=== PATIENT | male | born 1950 | race Caucasian/White ===

== ENCOUNTER → 2017-01-02 | Outpatient (CLI) | payer BC ==
--- NOTE | 2017-01-02 17:09 | PCVCIMAG ---
APPROVED REPORT Exam: Stress Echocardiogram Indication: Calcium score 100-200, Parox A Fib, mitral prolapse, HTN Patient Location: Echo lab Stress Nurse: Shayna Medley RN Status: routine Ht: 6 ft 1 in HR: 70 bpm BP: 130/86 mmHg Rhythm: NSR Procedure The patient underwent an Exercise Stress Test using the Jake Protocol. Blood pressure, heart rate, and EKG were monitored. An Echocardiogram was performed by bioprocessing manufacturing technician in four stages in quad fashion. At peak stress, four selected images were obtained and placed side by side with resting images for comparison. Stress Test Details Stress Test: Exercise stress testing was performed using a Jake protocol. HR Resting HR: 70 bpmMax Heart Rate (APMHR): 155 bpm Max HR Achieved: 142 bpmTarget HR (85% APMHR): 131 bpm % of APMHR: 91 Recovery HR: 94 bpm HR response to stress: Normal HR response to stress BP Resting BP: 130/86 mmHg Max BP: 188/78 mmHg Recovery BP: 132/78 mmHg ECG Resting ECG: Sinus Rhythm Stress ECG: Sinus Rhythm ST Change: Normal Arrhythmia: Isolated PVCs Recovery ECG: Sinus Rhythm Recovery ST Change: Normal Recovery Arrhythmia: Frequent Isolated PVCs that resolved to NSR Clinical Reason for Termination: Maximal effort Exercise duration: 9 min 45 sec Highest Stage Achieved: Stage 4: 4.2 mph at 16% grade. Exercise capacity: 12.4 METs Overall Exercise Capacity for Age: Normal Pre-Stress Echo The resting Echocardiogram showed normal left ventricular contractility with an estimated Ejection Fraction of about 55%. Normal wall motion in all segments on baseline images. Post-Stress Echo The stress Echocardiogram showed normal left ventricular contractility with an estimated Ejection Fraction of about 65%. Normal augmentation of wall motion in all segments on post stress images. Clinical No clinical or ECG evidence for ischemia. Conclusion Clinical Response: Non-ischemic Exercise Capacity: Average Stress ECG Response: Non-ischemic Stress Echo Images: Non-ischemic The left ventricle is normal in size and wall thickness in both the rest and stress images. Other Information Study Quality: Adequate <Conclusion> The left ventricle is normal in size and wall thickness in both the rest and stress images.
== END | disposition home or self-care (01) ==
LOC: PCVCIMAG 14:22
PROVIDERS: ATTEND Internal Medicine Cardiovascular Disease
DX: I34.1 Nonrheumatic mitral (valve) prolapse (principal); I49.3 Ventricular premature depolarization; I48.0 Paroxysmal atrial fibrillation; I10 Essential (primary) hypertension; E78.00 Pure hypercholesterolemia, unspecified
CPT/HCPCS: 80061; 93325; 93351

== ENCOUNTER → 2018-05-12 | Outpatient (CLI) | payer OTHER, MEDICARE ==
[~2018-05-12] MED LIST: ASPI-630 PO; CETI-161 PO; CHOL200059 PO; MELO15TA23 PO; OXYC5CAP PO
[2018-05-12 14:56] LABS: BASO % 0 % (0-3); EOS # 0.1 x10^3/uL (0.0-0.7); EOS % 1 % (0-3); HEMATOCRIT 43.9 % (39.0-53.0); HEMOGLOBIN 14.4 g/dL (13.0-17.5); LYMPH # 2.2 x10^3/uL (1.0-4.8); LYMPH % 32 % (24-48); MEAN CORPUSCULAR HEMOGLOBIN 32 pg (25-35); MEAN CORPUSCULAR HGB CONC 33 g/dL (31-37); MEAN CORPUSCULAR VOLUME 97 fL (79-100); MONO # 0.8 x10^3/uL (0.0-1.1); MONO % 11 % (0-9); NEUT # 3.9 x10^3uL (1.8-7.7); NEUT % 56 % (31-73); PLATELET COUNT 284 x10^3/uL (140-400); RED BLOOD COUNT 4.54 x10^6/uL (4.30-5.70); RED CELL DISTRIBUTION WIDTH 13.7 % (11.5-14.5)
--- NOTE | 2018-05-12 15:04 | NUR ---
CALLED DR HERNANDEZ'S OFFICE FOR RECENT EKG.
[2018-05-12 15:14] LABS: ALBUMIN 3.7 g/dL (3.4-5.0); ALBUMIN/GLOBULIN RATIO 1.1 (1.0-1.7); CALCIUM 9.2 mg/dL (8.5-10.1); CREATININE 0.9 mg/dL (0.7-1.3); GFR 84.2; TOTAL BILIRUBIN 0.4 mg/dL (0.2-1.0); TOTAL PROTEIN 7.2 g/dL (6.4-8.2)
== END | disposition home or self-care (01) ==
LOC: SURGPAT 13:25
PROVIDERS: ATTEND Neurological Surgery
DX: Z01.818 Encounter for other preprocedural examination (principal); M54.12 Radiculopathy, cervical region; M47.892 Other spondylosis, cervical region
CPT/HCPCS: 36415; 80053; 85025; 87641

== ENCOUNTER 2018-05-21 10:06 | Observation (INO) | payer OTHER, MEDICARE ==
--- NOTE | 2018-05-20 20:42 | PREOP HP ---
DATE OF SERVICE: 05/21/2018 HISTORY OF PRESENT ILLNESS: The patient is a pleasant 68-year-old who is having difficulty with left neck pain and pain that radiates into the left shoulder and left chest. The pain then radiates into his left arm. The problem has been present for years, but became too much more significant about 3 months ago. He said he was helping his son work on a house and developed the severe pain. He says the pain is 15/10, constantly. Coughing and sneezing and blowing his nose markedly increases pain. Nothing seems to help him. He has been taking Winona and Mobic without benefit. He has had multiple epidural steroid injections in the past, which he says usually help him for several months. He has had 1 about 3 weeks ago without any benefit. In 2010, he underwent a posterior cervical surgery and did well from that. PAST MEDICAL HISTORY: Tonsillitis. PAST SURGICAL HISTORY: Left shoulder surgery in 1992, right shoulder surgery in 1995, left foot in 2000, posterior cervical decompression in 04/2009, lumbar microdecompression at L3-L4 in 2010. FAMILY HISTORY: Alzheimer's. SOCIAL HISTORY: Retired. Exercises daily. No history of substance abuse. Nonsmoker. Drinks alcohol 1-2 times per month. Drinks minimal amount of caffeinated beverages daily. ALLERGIES: LATEX, PENICILLIN, SULFA. CURRENT MEDICATIONS: Winona, Mobic, aspirin, Tylenol. REVIEW OF SYSTEMS: A 12-point review of systems was obtained and is noncontributory except for that mentioned above. PHYSICAL EXAMINATION: NEUROSURGERY EXAMINATION: GENERAL APPEARANCE: Alert, pleasant, in no acute distress. HEAD: Normocephalic, atraumatic. NECK AND THYROID: Mild to moderate tenderness with palpation of posterior cervical region, well healed incision. SKIN: Warm and dry. MUSCULOSKELETAL: Cervical paraspinal muscle bulk is normal, cervical range of motion is restricted, normal range of motion of the upper extremities bilaterally. EXTREMITIES: No clubbing, cyanosis or edema. NEUROLOGIC: Alert, oriented x 3, normal recent and remote memory, strength 5/5 in bilateral upper and lower extremities, sensory was intact to light touch in the upper and lower extremities. Reflexes are present and symmetric in the upper and lower extremities bilaterally, normal gait. IMAGING: Reviewed. I reviewed a cervical MRI scan from 04/2018. On that study, there was significant foraminal narrowing present at C4-C5 and C5-C6. ASSESSMENT/ PLAN: The patient is somewhat complex. He has undergone posterior cervical surgery in the past. His current problem is left-sided neck pain, which radiates into his left chest and left shoulder as well as into his left proximal arm. I believe that the primary problems are at C4-C5 and C5-C6 on the left. He does have other disease, however. I explained to him that I am going to perform an anterior operation at C4-C5 and C5-C6 and decompress to see how he would do. I did discuss with him the surgery and the risks involved. I outlined the soft tissue structures of the neck and sequelae of injury to each. I spoke about the technique of the operation, the rationale for surgery. I discussed the expected postoperative course. He understands. He would like to go ahead. We will make the arrangements. ADRIANA ESPOSITO MD DR: LILIANA/ming JOB#: [id number] / [id number] ERASMO
[2018-05-21] VITALS (10 sets, daily range): BP systolic 144–165; BP diastolic 81–102
[~2018-05-21] VITALS: Ht 188 cm; Wt 106.6 kg
[~2018-05-21 10:06] MED LIST changes: +BACITRACIN 50,000 UNIT in IV NORMAL SALINE 1000ML BAG 1,000 ML IRR ONE; +BUPIVAC MPF-EPI 0.5%-1:200000 30 ML VIAL. ONE; +GELATIN SPONGE SIZE 100. ONE; +HYDROmorphone 2 MG/ML VIAL IV PRN; +IV RINGERS,LACTATED 1000ML 1,000 ML IV SCH; +LIDOCAINE 1% PF 2 ML VIAL. ID PRN; +MORPHINE SULFATE 4 MG/ML VIAL. IV PRN; +ONDANSETRON PF 4 MG/2 ML VIAL. IV PRN; +PROCHLORPERAZINE 10 MG/2 ML VIAL. IV PRN; +THROMBIN TOPICAL 20,000 UNIT SPRAY.SYRN KIT TP ONE; +VANCOMYCIN 1GM IVPB FOR OMNI 250 ML IV PRN; +fentaNYL PF VIAL 100 MCG/2 ML VIAL IV PRN
[2018-05-21] MEDS ORDERED: ROCURONIUM 50 MG/5 ML VIAL. ONE (11:23)
[2018-05-21] MEDS ORDERED: REMIFENTANIL 2 MG VIAL. IV ONE (11:24)
[2018-05-21] MEDS ORDERED: MIDAZOLAM HCL/PF 2 MG/2 ML VIAL. ONE (11:24)
[2018-05-21] MEDS ORDERED: fentaNYL PF VIAL 250 MCG/5 ML VIAL ONE (11:24)
[2018-05-21] MEDS ORDERED: DEXAMETHASONE SOD PHOS 20 MG/5 ML VIAL. ONE (14:03)
[2018-05-21] MEDS ORDERED: ONDANSETRON PF 4 MG/2 ML VIAL. ONE (14:03)
[2018-05-21] MEDS ORDERED: LIDOCAINE 2% PF 5 ML VIAL. ONE (14:04)
[2018-05-21] MEDS ORDERED: PROPOFOL 50 ML IV ONE ×2 (14:04→14:14)
[2018-05-21] MEDS ORDERED: PROPOFOL 20 ML IV ONE (14:04)
[2018-05-21] MEDS ORDERED: PHENYLEPHRINE 10 MG/ML VIAL. ONE ×2 (14:04)
[2018-05-21] MEDS ORDERED: DESFLURANE > 120 MINUTES IH ONE (14:05)
[2018-05-21] MEDS ORDERED: 0.9 % SODIUM CHLORIDE 10 ML DISP.SYRIN. IV PRN (14:45)
[2018-05-21] MEDS ORDERED: MAGNESIUM HYDROXIDE 2,400 MG/30 ML ORAL.SUSP. PO PRN (14:45)
[2018-05-21] MEDS ORDERED: ONDANSETRON PF 4 MG/2 ML VIAL. IV PRN (14:45)
[2018-05-21] MEDS ORDERED: CALCIUM CARBONATE 500 MG TAB.CHEW PO PRN (14:45)
[2018-05-21] MEDS ORDERED: NALOXONE 0.4 MG/ML VIAL. IV PRN (14:45)
[2018-05-21] MEDS ORDERED: MAG HYDROX/ALUMINUM HYD/SIMETH 30 ML ORAL.SUSP PO PRN (14:45)
[2018-05-21] MEDS ORDERED: fentaNYL PF VIAL 100 MCG/2 ML VIAL IV PRN ×2 (14:45)
[2018-05-21] MEDS ORDERED: diphenhydrAMINE HCL 25 MG CAPSULE PO PRN (14:45)
[2018-05-21] MEDS ORDERED: HYDROcodone/APAP 7.5/325MG 1 TAB TABLET PO PRN (14:45)
[2018-05-21] MEDS ORDERED: ACETAMINOPHEN 325 MG TABLET. PO PRN (14:45)
--- NOTE | 2018-05-21 15:16 | OP ---
DATE OF SURGERY: 05/21/2018 PREOPERATIVE DIAGNOSES: Lateral recess and foraminal narrowing C4-C5, C5-C6 with severe left cervical radiculopathy. POSTOPERATIVE DIAGNOSIS: Lateral recess and foraminal narrowing C4-C5, C5-C6 with severe left cervical radiculopathy. OPERATION PERFORMED: Anterior cervical microdiscectomy C4-C5, C5-C6; anterior cervical interbody fusion C4-C5, C5-C6 with allograft and autograft bone, anterior cervical plate C4-5-6. The operation was done with EMG monitoring, SSEP monitoring, NIMS monitoring, motor evoked potentials, fluoroscopy and microscopic dissection. SURGEON: Marvin Esposito M.D. EXPANDER: FERNIE Quick assisted with the surgery. She assisted with exposure, the 2-level microdecompression as well as the closure. OPERATIVE INDICATIONS: The patient is a pleasant 68-year-old man who developed severe intractable neck and left arm pain, which failed conservative measures. On imaging studies, he had the above-mentioned findings. After considerable discussion, I recommended an anterior cervical microdiscectomy and fusion. I discussed with him the surgery and the risks involved. I spoke about the soft tissue structures of the neck and sequelae of injury to each including injury to the carotid, the trachea, the esophagus, injury to both the nerve root and to spinal cord and the sequelae of this. I spoke about the expected postoperative course. I spoke about the use of anterior plating and screw constructs. I spoke about long-term issues associated with cervical surgery. He understood very well, as did his and they wished for me to go ahead. DESCRIPTION OF PROCEDURE: Following general endotracheal anesthesia, the patient was positioned supine in a neutral position. The anterior cervical region was then prepped and draped in standard fashion. CRIS hose and A-V Impulse boots were applied for DVT prophylaxis. A microscope was draped. Fluoroscopy was draped and brought into the field. Monitoring was established. Vancomycin 1 gram was given prior to surgery. Using fluoroscopic guidance, incision was made in the midline around toward the skin crease directly over the C5-C6 interspace. I dissected down through skin and subcutaneous tissue. I dissected around the medial aspect of the sternocleidomastoid and carotid artery sheath down the anterior cervical vertebral body. I exposed the C4-C5 and C5-C6. I placed [place] cervical retractors locked in the longus colli muscle at C5-C6 and 14 mm pins in C5 and C6. I did throughout this time confirmed my position fluoroscopically. I brought in the microscope and the remainder of surgery was done with the microscope using microscopic technique. I incised the anterior annulus with #11 blade. I distracted the disc space. I performed a discectomy with pituitary rongeurs. There was considerable degenerative change. I drilled away the posterior spurring and used 1 and 2 mm micro Kerrison's to trim away the annulus and the ligament and expose the neural foramen bilaterally. I worked diligently. I used small amounts of bone wax for hemostasis both from bone bleeding and the bipolar cautery where necessary and created an excellent decompression of 5-6. I placed an interbody fusion cage measuring 7 mm, which was packed with allograft and autograft bone. The autograft bone, I obtained from saving the bone spurs that I shaved away with the high speed air drill. Following this, I then removed the pin from C6 and put bone wax into this space and I moved superiorly and placed my retractor at C4-C5 and put the screw in C4. I again distracted the disc space. I again confirmed my position fluoroscopically. I again incised the anterior annulus. I used a high speed air drill to trim with the spurring and saved that bone. I performed a discectomy with endplate scrapers as well as pituitary and posteriorly then I trimmed the posterior osteophytic spurring and drilled and opened the annulus and the ligament, worked bilaterally to assure myself that the foramen were widely open. I placed trials and selected a 7 mm interbody fusion straight cage, which was packed with allograft and autograft bone. Hemostasis was perfect as at C5-C6 and I tapped the cage into position gently and then placed a 30 mm [employer] Piranha anterior plate and six 14 mm screws. The superior and inferior screws were placed first followed by the remaining screws, which were then locked. I then irrigated copiously with antibiotic solution. I explored carefully and assured myself that hemostasis was perfect. I closed the platysma as a separate layer. I closed the subcutaneous tissue and the skin was closed with 4-0 subcuticular stitch. The surgery went very well and the patient awakened and uneventfully taken to recovery room in excellent condition. I was quite pleased with the surgery. MARVIN ESPOSITO MD DR: LILIANA/ming JOB#: [id number] / [id number] ERASMO
[2018-05-21] MEDS: fentaNYL PF VIAL 100 MCG/2 ML VIAL IV PRN ×2 (15:21→15:35)
[2018-05-21] MEDS ORDERED: POTASSIUM CL 20MEQ D5-0.45NACL 1,000 ML IV SCH (16:00)
--- NOTE | 2018-05-21 16:34 | NUR ---
Patient arrived to the unit around 1604 in a hospital bed from the PACU. His Briseida is at bedside. Soft collar in place with an ice pack over it. 02 going at 2L continuous. Onel and SCDs on bilateral lower extremities. Patient complaining of pain in his neck with PRN medication given. He was able to ambulate with one person assist to the restroom without complications. Dressing dry/intact. Will continue to monitor.
[2018-05-21] MEDS: BENZOCAINE/MENTHOL LOZENGE. PO PRN ×3 (17:04→22:22)
--- NOTE | 2018-05-21 17:23 | NUR ---
denies numbness and tingling especially on the left arm; field crop grower equal and strong. complains of severe sore throat; cold foods given along with Cepacol. feels better at iv pain medication but diastolic blood pressure remains elevated. remains at bedside. scripts(pain medication and muscle relaxant) given to
[2018-05-21] MEDS: HYDROcodone/APAP 7.5/325MG 1 TAB TABLET PO PRN (18:37)
[2018-05-21] MEDS: METHOCARBAMOL 750 MG TABLET PO SCH (21:05)
[2018-05-21] MEDS: DOCUSATE SODIUM 100 MG CAPSULE. PO SCH (21:05)
[2018-05-22] MEDS ORDERED: VANCOMYCIN 1 GM in IV NORMAL SALINE 250ML 250 ML IV ONE (00:01)
[2018-05-22 03:29] VITALS: BP 133/76
[2018-05-22 06:00] VITALS: BP 124/77
--- NOTE | 2018-05-22 06:42 | NUR ---
Patient has rested quietly in chair states "I rest better in chair." Patient declined ice to surgical sites. Patient ambulated laps around nursing station frequently after using restroom throughout night. B/P has decreased as night progressed. Call light in reach.
--- NOTE | 2018-05-22 08:00 | NUR ---
dozes in the recliner with feet elevated. soft collar in place. dressing to right anterior neck is clean and dry. rating his pain a "6"-refused pain medication. muscle relaxant given.
[2018-05-22] MEDS: METHOCARBAMOL 750 MG TABLET PO SCH (08:23)
[2018-05-22] MEDS: DOCUSATE SODIUM 100 MG CAPSULE. PO SCH (08:23)
[2018-05-22] MEDS ORDERED: CETIRIZINE HCL 10 MG TABLET. PO SCH (09:00)
[2018-05-22] MEDS ORDERED: CHOLECALCIFEROL (VITAMIN D3) 1,000 UNIT TABLET PO SCH (09:00)
[2018-05-22] MEDS ORDERED: ASPIRIN CHEWABLE 81 MG TABLET. PO SCH (09:00)
--- NOTE | 2018-05-22 10:25 | DISCH ---
DISCHARGE INSTRUCTIONS Condition on Discharge Condition on Discharge: Stable Activity After Discharge Activity Instructions for Disc: Activity as tolerated, Avoid exertion, Walk in house Other activity instructions: ambulation is the only exercise permitted; gradually increase time and dist Bathing Instructions: Shower-keep dressing dry, No Tub Bath until see Lifting Instructions after Dis: No heavy lifting, No pulling or pushing, Do not lift >10 pounds Exercise Instruction after Dis: Progress as tolerated Driving Instructions after Dis: No driving for 2 weeks Weight Bearing Status after Di: No restrictions, Full weight bearing, As tolerated Diet after Discharge Diet after Discharge: Regular Additional Diet Restrictions: resume home diet Diet Texture: Regular Liquid Texture: Thin Liquid Swallowing Supervision: None needed Wound Incision Care Wound/Incision Care: Ice to area for comfort, Keep wound/cast CDI Other wound/incision instructi: may shower 48 hrs after surgery; NO direct water, antibiotic cream/ointment Wound Care Equipment: Dressings Checks after Discharge DC Comment: increase fruits, vegetables and fiber; attempt BM q 2-3 days Contacting the after DC Call your doctor for: Concerns you may have Follow-Up Follow Up With: call [phone] for a 2 week post op appt with Dr. Esposito' s nurse ADRIANA ESPOSITO MD May 22, 2018 10:25
[2018-05-22] MEDS ORDERED: DOCU-109 PO (10:29)
[2018-05-22] MEDS ORDERED: METH750T2 PO (10:29)
[2018-05-22] MEDS ORDERED: HYDR-2765 PO (10:29)
[2018-05-22] MEDS: HYDROcodone/APAP 7.5/325MG 1 TAB TABLET PO PRN (10:44)
--- NOTE | 2018-05-22 11:16 | NUR ---
reviewed written discharge instructions with patient and . reviewed restrictions to activities of daily living such as bathing ,driving follow up, diet and side effects to new medication--lortab and robaxin. dressing to right anterior neck changed.; demonstrated to . saline lock was removed earlier. pain medication given for increase in pain--"7" dismissed to home. was given scripts for medication last evening.
--- NOTE | 2018-05-22 14:02 | DS ---
DATE OF DISCHARGE: 05/22/2018 DATE OF SURGERY: 05/21/2018. DISCHARGE DIAGNOSES: Lateral recess and foraminal narrowing C4-C5, C5-C6 with severe left cervical radiculopathy. OPERATION PERFORMED: Anterior cervical microdiskectomy and fusion C4-C5, C5-C6. HISTORY OF PRESENT ILLNESS: The patient is a pleasant 68-year-old man who developed severe intractable neck and left arm pain, which failed to improve with conservative measures. On imaging studies, he had the above-mentioned findings. After considerable discussion, I recommended an ACDF. I discussed with him the surgery and the risks involved. I spoke about the soft tissue structures of the neck and sequelae of injury to each including injury to the carotid artery, the trachea and the esophagus and injury to both the nerve root and the spinal cord and the sequela of this. He understood the expected postoperative course. He understood the surgery very well and wished to proceed. HOSPITAL COURSE: He was admitted to the floor postoperatively where he has done well. He is up ambulating in the room and in the halls. His pain is improved. He has been seen by physical therapy and instruction was given to him regarding his activities. He is in good condition to discharge home. DISCHARGE MEDICATIONS: Resume his medications per the MRAD. DISCHARGE INSTRUCTIONS: He was instructed regarding incision care, activity restrictions and expectations for the next several weeks. He will follow up in our office in 2 weeks. He understands to call with any questions or concerns. ADRINAA ESPOSITO MD DR: LORRAINE/ming JOB#: [id number] / [id number]
--- NOTE | 2018-05-27 09:10 | PATHOLOGY ---
[facility] Accession Number: [id number] . 01 Material submitted: . CERVICAL DISC . 01 Clinical history: . Neck pain, cervical spondylosis with radiculopathy. . 02 Diagnosis: "Cervical disc", removal: - Portions of fibrocartilage with degenerative changes. - Fragments of unremarkable bone and fibrous tissue. (SKM/db; 05/23/2018) LBQ/05/23/2018 . 02 Electronically signed: . Jay Estrella MD, Pathologist NPI- [id number] . 01 Gross description: . Received in formalin labeled "Berlin Pearson, cervical disc" is a 2.5 x 1.7 x 0.4 cm aggregate of doan-white friable soft tissue fragments and scant doan-white bone. The specimen is submitted entirely in cassette A1 following decalcification. ([facility] [place]; 05/22/2018) SYC/SYC . 02 Pathologist provided ICD-10: M50.30 . 02 CPT . 092515 Specimen Comment: A courtesy copy of this report has been sent to Specimen Comment: [phone], . Specimen Comment: Report sent to / DR HERNANDEZ Performed at: 01 [facility] [address], [place], [place] [id number] MD Nasir Cabral MD Phone: [phone] Performed at: 02 [facility] [address] [id number] MD Arvind Heart MD Phone: [phone]
== END 2018-05-22 11:25 | disposition home or self-care (01) ==
LOC: SURG 10:06 → 4 SOUTHEST 16:15
PROVIDERS: ADMIT Neurological Surgery; ATTEND Neurological Surgery
DX: M47.899 Other spondylosis, site unspecified (principal); M54.12 Radiculopathy, cervical region; J03.90 Acute tonsillitis, unspecified; Z82.0 Family history of epilepsy and other diseases of the nervous system
CPT/HCPCS: 20931; 20936; 22551; 22552; 22853; 76000; 96365; 96375; 96376; 97116; 97162; 97530; A7015; C1713; G0378; G0379; G8978; G8979; G8980; J1100; J2001; J2250; J2405; J2704; J3010; J3370; J3490; J7030; J7050; J7120; S2350; 88304; 88311; J0780; J2270

== ENCOUNTER → 2019-01-20 | Outpatient (CLI) | payer OTHER ==
[~2019-01-20] MED LIST changes: -BACITRACIN 50,000 UNIT in IV NORMAL SALINE 1000ML BAG 1,000 ML IRR ONE; -BUPIVAC MPF-EPI 0.5%-1:200000 30 ML VIAL. ONE; +DOCU-109 PO; -GELATIN SPONGE SIZE 100. ONE; +HYDR-2765 PO; -HYDROmorphone 2 MG/ML VIAL IV PRN; -IV RINGERS,LACTATED 1000ML 1,000 ML IV SCH; -LIDOCAINE 1% PF 2 ML VIAL. ID PRN; +METH750T2 PO; -MORPHINE SULFATE 4 MG/ML VIAL. IV PRN; -ONDANSETRON PF 4 MG/2 ML VIAL. IV PRN; -PROCHLORPERAZINE 10 MG/2 ML VIAL. IV PRN; -THROMBIN TOPICAL 20,000 UNIT SPRAY.SYRN KIT TP ONE; -VANCOMYCIN 1GM IVPB FOR OMNI 250 ML IV PRN; -fentaNYL PF VIAL 100 MCG/2 ML VIAL IV PRN
--- NOTE | 2019-01-20 16:53 | PCVCIMAG ---
APPROVED REPORT Study performed: 01/20/2019 15:55:36 Exam: Stress Echocardiogram Indication: parox a fib, htn, hlp, ca score- 158 Patient Location: Echo lab Stress Nurse: Shayna Medley RN Status: routine Ht: 6 ft 2 in HR: 77 bpm BP: 110/70 mmHg Rhythm: NSR Procedure The patient underwent an Exercise Stress Test using the Jake Protocol. Blood pressure, heart rate, and EKG were monitored. An Echocardiogram was performed by finishing lab technician in four stages in quad fashion. At peak stress, four selected images were obtained and placed side by side with resting images for comparison. Stress Test Details Stress Test: Exercise stress testing was performed using a Jake protocol. HR Resting HR: 77 bpmMax Heart Rate (APMHR): 153 bpm Max HR Achieved: 130 bpmTarget HR (85% APMHR): 130 bpm % of APMHR: 84 Recovery HR: 83 bpm HR response to stress: Normal HR response to stress BP Resting BP: 110/70 mmHg Max BP: 176/84 mmHg Recovery BP: 134/80 mmHg BP response to stress: Normal blood pressure response to stress. ECG Resting ECG: Sinus Rhythm Stress ECG: Sinus Rhythm ST Change: Normal Arrhythmia: rare isolated PVC Recovery ECG: Sinus Rhythm Recovery ST Change: Normal Recovery Arrhythmia: None Clinical Reason for Termination: Maximal effort Stress Symptoms: Dyspnea Exercise duration: 9 min 12 sec Highest Stage Achieved: Stage 4: 4.2 mph at 16% grade. Exercise capacity: 10.7 METs Overall Exercise Capacity for Age: Normal Scale: Active Angina Score: None Pre-Stress Echo The resting Echocardiogram showed normal left ventricular contractility with an estimated Ejection Fraction of about >55%. The resting echocardiogram demonstrated normal wall motion in all wall segments. Post-Stress Echo The stress Echocardiogram showed normal left ventricular contractility with an estimated Ejection Fraction of about 65%. Compared to rest, there were no stress-induced wall motion abnormalities. Clinical No clinical or ECG evidence for ischemia. Conclusion Clinical Response: Non-ischemic Exercise Capacity: Average Stress ECG Response: Non-ischemic Stress Echo Images: Non-ischemic The left ventricle is normal in size and wall thickness in both the rest and stress images. Normal color doppler. No regurgitation or stenosis present on pulmonic, mitral, tricuspid and aortic valves. Other Information Study Quality: Adequate <Conclusion> The left ventricle is normal in size and wall thickness in both the rest and stress images. Normal color doppler. No regurgitation or stenosis present on pulmonic, mitral, tricuspid and aortic valves.
== END | disposition home or self-care (01) ==
LOC: PCVCIMAG 15:44
PROVIDERS: ATTEND Internal Medicine Cardiovascular Disease
DX: I48.0 Paroxysmal atrial fibrillation (principal); R93.1 Abnormal findings on diagnostic imaging of heart and coronary circulation; I10 Essential (primary) hypertension; E78.5 Hyperlipidemia, unspecified; E78.00 Pure hypercholesterolemia, unspecified; Z88.0 Allergy status to penicillin; Z88.2 Allergy status to sulfonamides; Z91.040 Latex allergy status
CPT/HCPCS: 93325; 93351